=== PATIENT | female | born 1980 | race Caucasian/White ===

== ENCOUNTER 2024-06-16 08:37 | Emergency (ER) | payer OTHER, SELFPAY ==
[2024-06-16] VITALS (62 sets, daily range): BP systolic 130–177; BP diastolic 62–112; PULSE 76–101; RESP 16–24; TEMP 36.3–36.9; O2SAT 94–100
--- NOTE | ~2024-06-16 | CT_ITS ---
EXAMINATION: CT abdomen pelvis wo con DATE: 06/16/2024 10:09 INDICATION: Abdominal pain. Urinary retention. TECHNIQUE: Computed tomography (CT) of the abdomen and pelvis was performed without intravenous contr ast. Automated exposure control and iterative reconstruction technique were employed. The dose-length product was 262.63 mGy-cm. COMPARISON: None FINDINGS: Mild pleural parenchymal scarring along the bilateral lung bases. Heart size is normal. No pericardia l or pleural effusion. Partially visualized bilateral breast implants. There are a multiple scattered tiny calcifications along the peritoneal surfaces of the otherwise normal liver, spleen, anteverted uterus, bilateral ovaries and scattered throughout the mesentery. These are of indeterminate etiology but without evident associated soft tissue masses to suggest malignancy. Pancreas and bilateral adre nal glands are normal. Bilateral nonobstructing nephrolithiasis with 3 3 left renal stones measuring up to 3 mm at the lower pole and 1 mm stone at the lower pole of the right kidney. Bilateral renal cy sts the larger on the right measuring 2.8 cm. Bladder is normal. Colon is unremarkable. Normal retrocecal appendix. There is fluid filling a loop of nondilated small bowel which measures up to 2.5 cm in the central pelvis with transition points to relatively decompre ssed bowel located in relatively close proximity but without evident crossing or twisting or upstream dilation of the small bowel to suggest a closed loop obstruction. There is however mesenteric edema associated with the fluid-filled loop of bowel which suggests either a localized enteritis or potenti ally venous congestion possibly loosening of an internal hernia. No abscess or free intraperineal gas . No pathologically enlarged abdominal or pelvic lymphadenopathy. Minimal thoracolumbar levocurvature with mild spondylosis. IMPRESSION: 1. Mesenteric edema associated with a fluid-filled but not frankly dilated loop of small bowel in the central pelvis with proximal and distal transition points to decompressed small bowel located in rel atively close proximity but not appearing to cross or twist about each other which along with the dil ation of bowel with argue against a closed loop obstruction. More likely differential would include a local enteritis or potentially venous congestion associated with nonobstructing internal hernia. 2. Nonobstructing bilateral nephrolithiasis. 3. Multiple tiny calcifications without evident associated masses scattered throughout the mesentery and along the surfaces of the liver, spleen which are of indeterminate etiology but of doubtful clini moe current clinical significance. Differential include sequela of chronic peritonitis including neon atal meconium peritonitis or sequela old granulomatous disease or other chronic infection. Reviewed, dictated and finalized at location A. [employer]GER IMPRESSION: 1. Mesenteric edema associated with a fluid-filled but not frankly dilated loop of small bowel in the central pelvis with proximal and distal transition point s to decompressed small bowel located in relatively close proximity but not jack earing to cross or twist about each other which along with the dilation of tone l with argue against a closed loop obstruction. More likely differential would include a local enteritis or potentially venous congestion associated with nono bstructing internal hernia. 2. Nonobstructing bilateral nephrolithiasis. 3. Multiple tiny calcifications without evident associated masses scattered thr oughout the mesentery and along the surfaces of the liver, spleen which are of indeterminate etiology but of doubtful clinical current clinical significance. Differential include sequela of chronic peritonitis including meconium peritonitis or sequela old granulomatous disease or other chronic infection.
--- NOTE | 2024-06-16 08:57 | ED.ABDPAIN ---
HPI - Abdominal Pain General Chief Complaint: Abdominal Pain Stated Complaint: abdominal pain going into the back Time Seen by Provider: 06/16/24 08:57 Source: patient Mode of arrival: ambulatory Limitations: no limitations History of Present Illness HPI narrative: 43 year old female presents to the Emergency Department complaining of abdominal pain. Onset 0645 while driving from [facility] to [place]. Patient indicates pain across mid abdomen in band like distribution and some bilateral flank pain. History of kidney stone x 1 in past. No vomiting, diarrhea, constipation, urinary tract symptoms. MD elicited complaint: abdominal pain Onset (ago): hour(s) (2) Pain Consistency: constant Location: periumbilical Severity: severe Radiation: bilateral flank and back Exacerbating factors: nothing Relieving factors: nothing Associated symptoms: denies other symptoms Related Data Patient : No Allergies Allergy/AdvReac Type Severity Reaction Status Date / Time morphine Allergy Severe Hives Verified 06/16/24 08:50 Review of Systems Review of Systems: All systems reviewed & are unremarkable except as noted in HPI and below Constitutional: Constitutional: Reports as per HPI, Denies chills and Denies fever(s) Eyes: Eyes: Reports as per HPI ENT: Reports system reviewed and no additional complaints, except as documented Cardiovascular: Cardiovascular: Reports as per HPI and Denies chest pain Respiratory: Respiratory: Reports as per HPI and Denies dyspnea Gastrointestinal: Gastrointestinal: Reports as per HPI, Reports abdominal pain, Denies constipation, Denies diarrhea, Denies nausea and Denies vomiting Genitourinary: Genitourinary: Reports no additional female genitourinary complaints, Denies nocturia, Reports flank pain and Denies vaginal discharge Musculoskeletal: Musculoskeletal: Reports no additional musculoskeletal complaints Integumentary/Breasts: Skin/Breast: Reports system reviewed and no additional complaints, except as docu Neurologic: Reports system reviewed and no additional complaints, except as documented Psychiatric: Psychiatric: Reports no additional psychiatric complaints Endocrine: Endocrine: Reports no additional endocrine complaints Hematologic/Lymphatic: Hematologic/Lymphatic: Reports no additional hematologic/lymphatic complaints Allergic/Immunologic: Allergic/Immunologic: Reports no additional allergic/immunologic complaints Exam Const: General: healthy appearing Nutritional Appearance: well nourished Orientation/consciousness: patient oriented x3 Other: moderate distress HENMT: Head: normal to inspection Ears: external ears normal Face/Nose/Sinus: Normal external nose present Face and sinus: normal facial exam Mouth: Yes Normal oral and palatal mucosa present Eyes: Conjunctivae: conjunctivae normal Pupils: Equal, round and reactive pupils present EOM: EOMs intact bilaterally Direct Ophthalmoscopy: no photophobia Neck: Neck: normal visual inspection Chest: Chest palpation & inspection: normal inspection of the chest Resp: Effort & Inspection: normal respiratory effort Auscultation: clear to auscultation bilaterally Cardio: Rate: regular rate Rhythm: regular rhythm GI: Inspection: non-distended GI Palp: Yes Soft to palpation, Yes Tenderness to palpation present (GI) (mildly across mid abdomen), No Guarding due to palpation present (GI), No Rigid due to palpation, No Palpable mass present and No Rebound tenderness present Auscultation: Hypoactive bowel sounds present : General: Yes bladder normal to palpation Back/Spine/Pelvis: Back: no CVA tenderness Skin: General skin exam: normal color Rashes: no rashes Neuro: General: patient oriented x3 Other: grossly normal, moderate distress Extrem: General: normal to inspection Psych: Mental Status: mental status grossly normal Course Course Emergency Course: 43 y/o female presents to the ED c/o pain across mid abdomen. Sudden onset 2 hours ago while driving. PE: moderate distress, mild tenderness across mid abdomen CBC: H/H 14.8/42.8, Plt 201; wbc 3.9 CMP: Na 143, K 4.2, Cl 109, CO2 20, Glc 168, BUN 15, Cr 0.94; LFT's normal A/L: 77 /44 UA: unremarkable CT Abd/Pelvis: non-obstructive nephrolithiasis. There is a fluid filled loop of nondilated small bowel which measures up to 2.5 cm in the central pelvis with transition points to relatively decompressed bowel located in relatively close proximity but without evident crossing or twisting or upstream dilation to suggest a closed loop obstruction. There is mesenteric edema assoc with fluid-filled loop of bowel which suggests either a localized enteritis or potentially venous congestion of an internal hernia. Tx: NS w/o, Fentanyl 50 mcg IVP, Zofran 4 mg IVP [no relief]. Fentanyl 50 mcg IVP. Toradol 30 mg IVP. Fentanyl 50 mcg IVP. Fentanyl 50 mcg IVP. Zofran 4 mg IVP, Dilaudid 0.5 mg IVP. Reglan 10 mg IVP, Toradol 30 mg IVP. (1130) [facility] Transfer. Will call back with . (1202) discussed with Dr. Del Valle ([facility]). Report given and patient accepted for transfer. Awaiting bed assignment. (1520) Report given to [place] transfer. Will call back (1544) Spoke with Dr. Velasquez ([place] - Hospitalist). Will discuss with surgery and call back. (8145) Notified by [facility] that patient has been accepted for transfer and admission. Accepting physician Dr. Velasquez. Bed assigned 206. Report to be called and EMS notified of transfer. Vital Signs Vital signs: Vital Signs Temperature 36.6 C 06/16/24 08:41 Pulse Rate 98 06/16/24 08:41 Respiratory Rate 20 06/16/24 08:41 Blood Pressure 164/106 H 06/16/24 08:41 Pulse Oximetry 100 06/16/24 08:41 Oxygen Delivery Room Air 06/16/24 08:41 Temperature 36.5 C 06/16/24 16:24 Pulse Rate 79 06/16/24 16:24 Respiratory Rate 20 06/16/24 16:24 Blood Pressure 152/80 H 06/16/24 16:24 Pulse Oximetry 100 06/16/24 16:45 Oxygen Delivery Room Air 06/16/24 16:24 Transfer Transfered to: Other ([facility], [place], [place]) Transportation: ALS Transfer rationale: Acute Abdominal pain, surgical evaluation Accepting physician: Dr. Velasquez MDM - Abdominal Pain Lab Data 06/16/24 09:22 06/16/24 09:22 Labs: Lab Results 06/16/24 06/16/24 Range/Units 09:01 09:22 WBC 3.9 L (4.8-10.8) K/mm3 RBC 4.66 (4.20-5.40) M/mm3 Hgb 14.8 (12.0-15.0) g/dL Hct 42.8 (35.0-49.0) % MCV 91.8 (78.0-102.0) fL MCH 31.8 H (27.0-31.0) pg MCHC 34.6 (32-36) g/dL RDW 11.9 (11.6-14.4) % Plt Count 201 (150-420) K/mm3 MPV 8.4 L (9.2-11.8) fl Immature Gran % (Auto) Not Reportable Neut % (Auto) Not Reportable Lymph % (Auto) Not Reportable [place] % (Auto) Not Reportable Eos % (Auto) Not Reportable Baso % (Auto) Not Reportable Lymph # (Auto) Not Reportable [place] # (Auto) Not Reportable Eos # (Auto) Not Reportable Baso # (Auto) Not Reportable Abs Immat Gran (auto) Not Reportable Absolute Neuts (auto) Not Reportable Absolute Nucleated RBC Not Reportable Total Counted 100 Neutrophils % (Manual) 69 (46-73) % Band Neutrophils % 0 (0-6) % Lymphocytes % (Manual) 25 (18-44) % Monocytes % (Manual) 5 (3-9) % Eosinophils % (Manual) 1 (1-6) % Nucleated RBC % Not Reportable Abs Neuts (Manual) 2.69 (1.7-7.2) K/mm3 Abs Lymphs (Manual) 0.97 L (1.1-4.5) K/mm3 Abs Monocytes (Manual) 0.19 (0.1-0.90) K/mm3 Absolute Eos (Manual) 0.03 (0.02-0.50) K/mm3 Platelet Estimate Adequate (Adequate) Schistocytes Not Reportable Sodium 143 (136-145) mmol/L Potassium 4.2 (3.5-5.1) mmol/L Chloride 109 H (98-108) mmol/L Carbon Dioxide 20 L (21-32) mmol/L Anion Gap 14 H (4-12) mmol/L BUN 15 (7-18) mg/dL Creatinine 0.94 (0.55-1.02) mg/dL Estim Creat Clear Calc 50 ml/min Estimated GFR > 60 (59 - ) Glucose 168 H (70-99) mg/dL Calculated Osmolality 300 H (285-295) mOsm/kg Calcium 9.4 (8.5-10.1) mg/dL Total Bilirubin 0.5 (0.00-1.00) mg/dL AST 18 (15-37) U/L ALT 20 (14-59) U/L Alkaline Phosphatase 66 (46-116) U/L Total Protein 7.0 (6.4-8.2) g/dL Albumin 4.1 (3.4-5.0) g/dL Amylase 77 (25-115) U/L Lipase 44 (16-77) U/L Urine Color Yellow (Yellow) Urine Appearance Clear (Clear) Urine pH 7.0 (5.0-8.0) Ur Specific [place] 1.020 (1.010-1.020) Urine Protein Negative (Negative) Urine Glucose (UA) Negative (Negative) Urine Ketones Negative (Negative) Ur Blood (Man) Negative (Negative) Urine Nitrate Negative (Negative) Urine Bilirubin Negative (Negative) Urine Urobilinogen 0.2 (0.2-1.0) mg/dL Ur Leukocyte Esterase Negative (Negative) Urine Test Negative Imaging Data Radiologist's impression: ITS Impressions Abdomen/Pelvis CT 06/16/24 10:21 IMPRESSION: 1. Mesenteric edema associated with a fluid-filled but not frankly dilated loop of small bowel in the central pelvis with proximal and distal transition points to decompressed small bowel located in relatively close proximity but not appearing to cross or twist about each other which along with the dilation of bowel with argue against a closed loop obstruction. More likely differential would include a local enteritis or potentially venous congestion associated with nonobstructing internal hernia. 2. Nonobstructing bilateral nephrolithiasis. 3. Multiple tiny calcifications without evident associated masses scattered throughout the mesentery and along the surfaces of the liver, spleen which are of indeterminate etiology but of doubtful clinical current clinical significance. Differential include sequela of chronic peritonitis including meconium peritonitis or sequela old granulomatous disease or other chronic infection. Discharge Plan Discharge Clinical Impression: Abdominal pain Patient Disposition: Acute Care Hospital Condition: Stable Patient Language: Niuean Follow-up/Referrals: UNKNOWN,DOCTOR [Primary Care Provider] - Time of Disposition: 16:03
[2024-06-16] MEDS: SODIUM CHLORIDE 0.9% IV 1,000 ML 999 ML IV CONT (09:15)
[2024-06-16] MEDS: ONDANSETRON INJ 4 MG/2 ML VIAL IV PUSH ×2 (09:16→16:27)
[2024-06-16] MEDS: fentaNYL CITRATE INJ (*CRX) 100 MCG/2 ML VIAL 50 MCG IV PUSH ×4 (09:16→15:47)
[2024-06-16 09:26] LABS: Hematocrit 42.8 % (35.0-49.0); Hemoglobin 14.8 g/dL (12.0-15.0); Mean Corpuscular HGB Conc 34.6 g/dL (32-36); Mean Corpuscular Hemoglobin 31.8 pg (27.0-31.0); Mean Corpuscular Volume 91.8 fL (78.0-102.0); Mean Platelet Volume 8.4 fl (9.2-11.8); Platelet Count Result 201 K/mm3 (150-420); Red Blood Count 4.66 M/mm3 (4.20-5.40); Red Cell Distribution Width 11.9 % (11.6-14.4); White Blood Count 3.9 K/mm3 (4.8-10.8)
[2024-06-16 09:36] LABS: Add Urine Microscopic? NO; Appearance Urine Clear (Clear); Bilirubin Urine Negative (Negative); Blood Urine Negative (Negative); Color Urine Yellow (Yellow); Glucose Urine UA Negative (Negative); Ketones Urine Negative (Negative); Leukocyte Esterase Ur Negative (Negative); Nitrate Urine Negative (Negative); Protein Urine Negative (Negative); Urobilinogen Urine 0.2 mg/dL (0.2-1.0)
[2024-06-16 09:49] LABS: Pregnancy On Board Control Positive; Urine Pregnancy Test Negative
[2024-06-16 09:53] LABS: Total Cells Counted 100
[2024-06-16 09:54] LABS: Band Neutrophils Percent 0 % (0-6); Eosinophils Absolute Manual 0.03 K/mm3 (0.02-0.50); Eosinophils Percent Manual 1 % (1-6); Lymphocytes Absolute Manual 0.97 K/mm3 (1.1-4.5); Lymphocytes Percent Manual 25 % (18-44); Monocytes Absolute Manual 0.19 K/mm3 (0.1-0.90); Monocytes Percent Manual 5 % (3-9); Neutrophils Absolute Manual 2.69 K/mm3 (1.7-7.2); Neutrophils Percent Manual 69 % (46-73); Platelet Estimate Adequate (Adequate)
[2024-06-16 10:00] LABS: Alanine Aminotransferase 20 U/L (14-59); Albumin Level 4.1 g/dL (3.4-5.0); Alkaline Phosphatase 66 U/L (46-116); Amylase 77 U/L (25-115); Anion Gap 14 mmol/L (4-12); Aspartate Amino Transferase 18 U/L (15-37); Bilirubin,Total 0.5 mg/dL (0.00-1.00); Blood Urea Nitrogen 15 mg/dL (7-18); Calcium 9.4 mg/dL (8.5-10.1); Carbon Dioxide 20 mmol/L (21-32); Chloride 109 mmol/L (98-108); Estimated CRCL calculation 50 ml/min; Estimated Glomerular Filt Rate > 60; Glucose 168 mg/dL (70-99); Lipase 44 U/L (16-77); Osmolality Calculated 300 mOsm/kg (285-295); Potassium 4.2 mmol/L (3.5-5.1); Sodium 143 mmol/L (136-145)
[2024-06-16] MEDS: KETOROLAC 30 MG/ML VIAL (*BKC) IV PUSH ×2 (11:16→17:27)
[2024-06-16] MEDS: PIPERACILLN/TAZ 3.375GM/NS50ML 3.375 GM/50 ML BAG IVPB (12:40)
[2024-06-16] MEDS: HYDROmorphone HCL INJ (*CRX) 2 MG/ML VIAL 0.5 MG IV PUSH (16:25)
[2024-06-16] MEDS: METOCLOPRAMIDE HCL INJ 10 MG/2 ML VIAL IV PUSH (17:27)
== END 2024-06-16 18:15 | disposition short-term general hospital (02) ==
PROVIDERS: Emergency Provider Emergency Medicine
DX: R10.33 Periumbilical pain (principal)
CPT/HCPCS: 36415; 74176; 80053; 81003; 81025; 82150; 83690; 85025; 96361; 96365; 96375; 96376; 99285; J1171; J1885; J2405; J2543; J2765; J3010; J7030